=== PATIENT | male | born 1955 | race Caucasian/White ===

== ENCOUNTER 2017-09-04 07:13 | Outpatient (CLI) | payer OTHER | END 2017-09-04 07:22 | disposition home or self-care (01) | LOC: LAB 07:13 | DX: Z12.5 Encounter for screening for malignant neoplasm of prostate (principal); R31.9 Hematuria, unspecified; E03.9 Hypothyroidism, unspecified; E78.2 Mixed hyperlipidemia; E55.9 Vitamin D deficiency, unspecified ==

== ENCOUNTER 2018-04-08 08:49 | Outpatient (CLI) | payer OTHER | END 2018-04-08 08:56 | disposition home or self-care (01) | LOC: LAB 08:49 | DX: R97.20 Elevated prostate specific antigen [PSA] (principal); N40.1 Benign prostatic hyperplasia with lower urinary tract symptoms ==

== ENCOUNTER → 2018-04-08 | Outpatient (CLI) | payer OTHER | END | disposition home or self-care (01) | LOC: NUCLEAR 04-01 11:00 | DX: M81.0 Age-related osteoporosis without current pathological fracture (principal) ==

== ENCOUNTER 2018-04-09 08:36 | Outpatient (CLI) | payer OTHER | END 2018-04-09 15:00 | disposition home or self-care (01) | LOC: LAB 08:36 | DX: D64.89 Other specified anemias (principal); E11.9 Type 2 diabetes mellitus without complications; E78.49 Other hyperlipidemia; I10 Essential (primary) hypertension; E03.8 Other specified hypothyroidism ==

== ENCOUNTER 2018-06-16 11:33 | Emergency (ER) | payer OTHER ==
[~2018-06-16] VITALS: Ht 180.3 cm; Wt 102.1 kg
[2018-06-16] MEDS ORDERED: TAMS0.4C (11:59)
[2018-06-16] MEDS ORDERED: PROTONIX20 MG (12:00)
[2018-06-16] MEDS ORDERED: FOSAMAX70 MG (12:00)
== END 2018-06-16 20:23 | disposition home or self-care (01) ==
LOC: ER 11:33
DX: M54.2 Cervicalgia (principal)

== ENCOUNTER 2018-12-03 07:41 | Outpatient (CLI) | payer OTHER ==
[~2018-12-03 07:41] MED LIST: FOSAMAX70 MG; PROTONIX20 MG; TAMS0.4C
== END 2018-12-03 07:55 | disposition home or self-care (01) ==
LOC: LAB 07:41
DX: D64.89 Other specified anemias (principal); E11.9 Type 2 diabetes mellitus without complications; E78.2 Mixed hyperlipidemia; I10 Essential (primary) hypertension; E03.8 Other specified hypothyroidism; R97.20 Elevated prostate specific antigen [PSA]

== ENCOUNTER 2018-12-03 07:54 | Outpatient (CLI) | payer OTHER | END 2018-12-03 08:22 | disposition home or self-care (01) | LOC: TOM 07:54 | DX: R10.9 Unspecified abdominal pain (principal); M51.36 Other intervertebral disc degeneration, lumbar region; M51.37 Other intervertebral disc degeneration, lumbosacral region; M54.5 Low back pain | CPT/HCPCS: 72148 ==

== ENCOUNTER 2019-03-17 06:24 | Outpatient (CLI) | payer OTHER | END 2019-03-17 06:36 | disposition home or self-care (01) | LOC: LAB 06:24 | DX: N39.0 Urinary tract infection, site not specified (principal); N20.0 Calculus of kidney; N40.0 Benign prostatic hyperplasia without lower urinary tract symptoms; N18.9 Chronic kidney disease, unspecified; R97.20 Elevated prostate specific antigen [PSA] ==

== ENCOUNTER → 2019-04-14 08:42 | Outpatient (CLI) | payer OTHER | END | disposition home or self-care (01) | LOC: LAB 08:42 | DX: N20.0 Calculus of kidney (principal); N40.0 Benign prostatic hyperplasia without lower urinary tract symptoms; N39.0 Urinary tract infection, site not specified ==

== ENCOUNTER 2019-04-15 07:58 | Outpatient (CLI) | payer OTHER | END 2019-04-15 08:11 | disposition home or self-care (01) | LOC: NUCLEAR 07:58 | DX: I25.10 Atherosclerotic heart disease of native coronary artery without angina pectoris (principal) | CPT/HCPCS: 78452; 93017; A9500 ==

== ENCOUNTER 2020-03-29 08:41 | Outpatient (CLI) | payer OTHER | END 2020-03-29 09:07 | disposition home or self-care (01) | LOC: LAB 08:41 | DX: N39.0 Urinary tract infection, site not specified (principal); N20.0 Calculus of kidney; N40.0 Benign prostatic hyperplasia without lower urinary tract symptoms; D64.89 Other specified anemias; E11.9 Type 2 diabetes mellitus without complications; E78.2 Mixed hyperlipidemia; I10 Essential (primary) hypertension; E03.8 Other specified hypothyroidism ==

== ENCOUNTER → 2020-09-13 07:46 | Outpatient (CLI) | payer OTHER | END | disposition home or self-care (01) | LOC: LAB 07:46 | PROVIDERS: ATTEND Internal Medicine Sports Medicine | DX: D64.89 Other specified anemias (principal); E11.9 Type 2 diabetes mellitus without complications; E78.2 Mixed hyperlipidemia; I10 Essential (primary) hypertension; E03.8 Other specified hypothyroidism; R97.20 Elevated prostate specific antigen [PSA] ==

== ENCOUNTER → 2020-09-13 12:38 | Outpatient (CLI) | payer OTHER | END | disposition home or self-care (01) | LOC: NUCLEAR 12:38 | PROVIDERS: ATTEND Internal Medicine Sports Medicine | DX: M81.0 Age-related osteoporosis without current pathological fracture (principal) ==

== ENCOUNTER 2020-09-15 07:29 | Outpatient (CLI) | payer OTHER | END 2020-09-15 07:49 | disposition home or self-care (01) | LOC: TOM 07:29 | PROVIDERS: ATTEND Internal Medicine Sports Medicine | DX: R10.9 Unspecified abdominal pain (principal) ==

== ENCOUNTER 2020-09-15 07:58 | Outpatient (CLI) | payer OTHER | END 2020-09-15 15:29 | disposition home or self-care (01) | LOC: EKG 07:58 | PROVIDERS: ATTEND Radiology Diagnostic Radiology | DX: R07.89 Other chest pain (principal) ==

== ENCOUNTER 2021-02-28 08:52 | Outpatient (CLI) | payer OTHER | END 2021-02-28 09:12 | disposition home or self-care (01) | LOC: LAB 08:52 | PROVIDERS: ATTEND Internal Medicine Sports Medicine | DX: D64.89 Other specified anemias (principal); E11.9 Type 2 diabetes mellitus without complications; E78.2 Mixed hyperlipidemia; E03.8 Other specified hypothyroidism; I10 Essential (primary) hypertension; R97.20 Elevated prostate specific antigen [PSA] ==